=== PATIENT | male | born 1945 | race Native Hawaiian/Other Pacific Islander ===

== ENCOUNTER 2018-12-22 10:32 | Emergency (ER) | payer OTHER ==
[~2018-12-22] VITALS: Ht 175.3 cm; Wt 72.6 kg
[2018-12-22 11:03] LABS: PLATELET COUNT 153 K/uL (142-355)
[2018-12-22 11:11] LABS: POTASSIUM 4.3 mmol/L (3.6-5.2)
[2018-12-22 11:45] VITALS: BP 121/61; TEMP 97.3
[2018-12-22] MEDS ORDERED: D35000 UNIT PO (13:06)
[2018-12-22] MEDS ORDERED: DIVA500T2 PO (13:07)
[2018-12-22] MEDS ORDERED: MULTAQ400 MG PO (13:10)
[2018-12-22] MEDS ORDERED: ALBUSOL INH (13:13)
[2018-12-22] MEDS ORDERED: APIX1TAB PO (13:14)
[2018-12-22] MEDS ORDERED: TAMS0.4C PO (13:16)
[2018-12-22] MEDS ORDERED: HALO5INJ3 IM (13:19)
[2018-12-22] MEDS ORDERED: METO50TA27 PO (13:21)
[2018-12-22] MEDS ORDERED: MEMA10TA2 PO (13:29)
[2018-12-22] MEDS ORDERED: SIMV40TA57 PO (13:31)
[2018-12-22] MEDS ORDERED: LEVO0.0723 PO (13:32)
[2018-12-22] MEDS ORDERED: TRAMADOL HYDROC50 MG PO (13:34)
[2018-12-22] MEDS ORDERED: SERT100T PO (13:38)
[2018-12-22] MEDS ORDERED: ARICEPT PO (20:15)
[2018-12-22] MEDS ORDERED: DOCU100C10 PO (20:18)
[2019-01-06] MEDS ORDERED: ESCI10TA PO (15:55)
[2019-01-06] MEDS ORDERED: DONE5TAB PO (15:55)
[2019-01-06] MEDS ORDERED: RISP0.25 PO (15:55)
[2019-01-06] MEDS ORDERED: DIVA500T2 PO ×2 (15:56)
[2019-01-06] MEDS ORDERED: CHOL100034 PO (15:56)
[2019-01-06] MEDS ORDERED: MEMA5TAB PO (15:57)
== END 2018-12-22 11:45 | disposition still patient (30) ==
LOC: ED 10:32
PROVIDERS: Hospitalist
DX: F03.91 Unspecified dementia, unspecified severity, with behavioral disturbance (principal); Z04.6 Encounter for general psychiatric examination, requested by authority
CPT/HCPCS: 80053; 81000; 85027; 93005; 99285